=== PATIENT | female | born 1985 | race Two or more races ===

== ENCOUNTER 2018-09-02 18:04 | Emergency (ER) | payer BC ==
[~2018-09-02] VITALS: Ht 152.4 cm; Wt 57.3 kg
[2018-09-02 18:13] VITALS: Ht 152.4 cm; Wt 57.3 kg
[2018-09-02] MEDS ORDERED: FOLIC ACID1 MG PO (18:15)
[2018-09-02] MEDS ORDERED: SYNTHROID137 MCG PO (18:15)
[2018-09-02 19:03] LABS: APPEARANCE CLEAR (CLEAR); BILIRUBIN NEGATIVE (NEGATIVE); COLOR YELLOW (YELLOW); GLUCOSE NEGATIVE (NEGATIVE); KETONE NEGATIVE (NEGATIVE); NITRITE NEGATIVE (NEGATIVE); PROTEIN NEGATIVE (NEGATIVE); SPECIFIC GRAVITY 1.015 (1.005-1.020); UROBILINOGEN NORMAL (NORMAL)
[2018-09-02 19:23] LABS: BASOPHILS 0 % (0-2); EOSINOPHILS 1.4 % (0-7); HEMATOCRIT 37.1 % (36.0-48.0); HEMOGLOBIN 12.4 g/dL (12-16); IMMATURE GRANULOCYTES 0.3 % (0-5); LYMPHOCYTES 15.1 % (15-50); MCH 29.3 pg (26.0-34.0); MCHC 33.4 g/dL (31.0-37.0); MCV 87.7 fL (80.0-100.0); MEAN PLATELET VOLUME 10.9 fL (7.4-10.4); MONOCYTES 6.3 % (2-11); NEUTROPHILS 76.9 % (40-80); PLATELET COUNT 221 10x3/uL (130-400); RBC 4.23 10x6/uL (4.00-5.40); RDW 13.6 % (11.5-14.5); WBC 11.4 10x3/uL (4.8-10.8)
[2018-09-02 19:46] LABS: ALBUMIN 3.3 g/dL (3.4-5.0); ALKALINE PHOSPHATASE 79 U/L (46-116); ALT (SGPT) 11 U/L (10-68); BILIRUBIN - TOTAL 0.12 mg/dL (0.2-1.3); CALC OSMOLALITY 269 mosm/kg (275-300); CARBON DIOXIDE 21.9 mmol/L (21.0-32.0); CHLORIDE - SERUM 101 mmol/L (98-107); CREATININE - SERUM 0.6 mg/dL (0.6-1.3); GLUCOSE 94 mg/dL (74-106); POTASSIUM - SERUM 4.3 mmol/L (3.5-5.1); PROTEIN - SERUM 7.7 g/dL (6.4-8.2); SODIUM 135 mmol/L (136-145); UREA NITROGEN 12 mg/dL (7-18); eGFR NON AFRICAN AMERICAN > 90 mL/min (90-120)
[2018-09-02 20:12] LABS: HCG - QUANTITATIVE (MATERNAL) 101215 mIU/mL
[2018-09-02 20:44] VITALS: BP 112/79
== END 2018-09-02 20:44 | disposition home or self-care (01) ==
LOC: D.ER 18:04
PROVIDERS: Family Medicine
DX: O26.851 Spotting complicating pregnancy, first trimester (principal); Z3A.13 13 weeks gestation of pregnancy; B37.9 Candidiasis, unspecified

== ENCOUNTER → 2018-10-14 11:01 | Outpatient (CLI) | payer BC ==
[2018-09-02 18:13] VITALS: BMI 24.6
--- NOTE | ~2018-10-14 | EC ---
PATIENT:GORAN HIDALGO DATE OF SERVICE: 10/14/18 SEX: F MEDICAL RECORD: [id number] DATE OF : [birth year] LOC[facility] AGE OF PATIENT: 33 ADMISSION DATE: 10/14/18 REFERRING PHYSICIAN: INTERPRETING PHYSICIAN: AYANNA LIZARRAGA MD ECHOCARDIOGRAM REPORT ECHO CHARGES 4 ECHO COMPLETE Date: 10/14/18 CLINICAL DIAGNOSIS: PVC'S/ ECHOCARDIOGRAPHIC MEASUREMENTS (adult normal given) AC root (d.<3.7cm) 2.2 cm LV Septum d (<1.2 cm> 0.9 cm Valve Excursion 1.6 cm LV Septum (systole) 1.5 cm Left Atria (s.<4.0cm> 2.8 cm LVPW d(<1.2cm) 0.8 cm RV (d.<2.3cm) 2.0 cm LVPW (sytole) 1.5 cm LV diastole(<5.6CM) 4.6 cm MV E-F(>70mm/sec) cm LV systole 2.5 cm LVOT Diameter 1.6 cm MV exc.(>10mm) cm Est.ejection fraction (50-75%) % DOPPLER: LVIT cm/sec A 57.0 cm/sec E 96.0 cm/sec LA cm/sec RVSP 28.3 mmHg LVOT 131 cm/sec AOP1/2T m/s Asc. Ao 184 cm/sec RVOT 65.0 cm/sec RA cm/sec PA 102 cm/sec AV Gradient Peak 14.0 mmHg AV Mean 6.7 mmHg AV Area 1.4 cm MV Gradient Peak 6.4 mmHg MV Mean 2.3 mmHg MV Area cm COMMENTS: OP - [employer] Supervisor: 1 MIRELLA EVAN Machine Tank Operator: 3 Dr. Gale TAPE# PACS Pericardial Effusion N DATE OF SERVICE: Adequate 2D, color flow, spectral Doppler, and M-Mode No LVH. LV internal dimension is normal. Wall motion is normal. EF is greater than or equal to 55%. Aortic valve is tricuspid. No evidence of stenosis by Doppler interrogation. Left atrium is normal. Mitral valve shows no prolapse. Trace MR. Right-sided chamber is grossly normal. Trace TR. TRANSINT:[id number] Voice Confirmation ID: [id number] DOCUMENT ID: [id number] ECHOCARDIOGRAM REPORT [id number] MORALESTORRES,AYANNA GARCIA MD CC: [id number] DICTATION DATE: 10/15/18 1310 RADIO NEWS ANCHOR: 10/15/18 1501 DEP CLI 10/14/18 [place] [id number] [place] [id number]
[~2018-10-14 11:01] MED LIST: FOLIC ACID1 MG PO; SYNTHROID137 MCG PO
== END | disposition home or self-care (01) ==
LOC: D.HCCARDIO 11:01
PROVIDERS: ATTEND Internal Medicine Interventional Cardiology
DX: I49.9 Cardiac arrhythmia, unspecified (principal)

== ENCOUNTER → 2018-10-30 11:29 | Outpatient (CLI) | payer BC ==
[2018-10-30 12:31] LABS: UDS - AMPHET NEGATIVE QUAL (NEGATIVE); UDS - BARB NEGATIVE QUAL (NEGATIVE); UDS - BENZO NEGATIVE QUAL (NEGATIVE); UDS - COCAINE NEGATIVE QUAL (NEGATIVE); UDS - OPIATE NEGATIVE QUAL (NEGATIVE); UDS - PCP NEGATIVE QUAL (NEGATIVE); UDS - THC NEGATIVE QUAL (NEGATIVE)
[2018-10-30 12:37] LABS: APPEARANCE SL CLDY (CLEAR); BILIRUBIN NEGATIVE (NEGATIVE); COLOR YELLOW (YELLOW); GLUCOSE NEGATIVE (NEGATIVE); KETONE NEGATIVE (NEGATIVE); NITRITE NEGATIVE (NEGATIVE); PROTEIN NEGATIVE (NEGATIVE); UROBILINOGEN NORMAL (NORMAL)
[2018-10-30 12:39] LABS: AMORPHOUS SEDIMENT <1+ /lpf (NONE SEEN); BACTERIA MANY /hpf (NONE SEEN); EPITHELIAL CELLS 0-5 /hpf (0-5); MUCUS <1+ /lpf (NONE SEEN); WHITE CELLS - URINE 0-5 /hpf (0-5)
== END | disposition home or self-care (01) ==
LOC: D.LDO 11:29
PROVIDERS: Obstetrics & Gynecology
DX: O26.90 Pregnancy related conditions, unspecified, unspecified trimester (principal); R10.9 Unspecified abdominal pain

== ENCOUNTER 2019-05-19 11:48 | Emergency (ER) | payer BC ==
[2018-09-02 18:13] VITALS: BMI 24.6
== END 2019-05-19 13:18 | disposition left against medical advice (07) ==
LOC: D.ER 11:48
DX: R60.9 Edema, unspecified (principal)